=== PATIENT | female | born 1960 | race African-American/Black ===

== ENCOUNTER → 2018-09-24 | Outpatient (CLI) | payer OTHER ==
[2015-09-16 13:50] VITALS: BP 141/73
[~2018-09-24] MED LIST: AMLO10TA6 PO; CLON0.2T PO; LISI-334 PO; MELO15TA23 PO
--- NOTE | 2018-09-24 12:22 | KCIC ---
EXAMINATION: Magnetic resonance imaging (MRI) of the lumbar spine without contrast 09/24/2018 11:00 AM HISTORY: Low back pain. TECHNIQUE: Multiplanar multi-weighted MRI of the lumbar spine was performed without intravenous contrast using the standard lumbar spine protocol. Contrast information: None administered. COMPARISON: None available. FINDINGS: The alignment of the lumbar spine is normal. Vertebral bodies demonstrate normal signal intensity on all sequences. There are no compression fractures. The conus medullaris terminates at the level of L1. The distal spinal cord signal intensity is normal. Visualized portions of the sacrum appear intact There is disc desiccation at L2-L3, L3-L4 and L4-L5 with associated annular fissures. Mild disc height loss is noted at these levels. There is congenital narrowing of the spinal canal secondary to shortened pedicles. The aorta is normal. There is nonspecific soft tissue nodule identified in the left retroperitoneum measuring 6 mm (series 7, image 19). L2-L3: There is a [id number] circumferential disc bulge. There is moderate facet arthropathy with ligamentum flavum infolding. There is moderate bilateral neuroforaminal stenosis. There is moderate spinal canal stenosis with narrowing of the lateral recess bilaterally, left greater than right. L3-L4: There is a moderate circumferential disc bulge with right far lateral disc protrusion and central disc extrusion. There is moderate to severe facet arthropathy with ligamentum flavum infolding. There is moderate to severe spinal canal stenosis. There is narrowing of the lateral recess bilaterally. L4-L5: There is a moderate circumferential disc bulge with central disc protrusion. There is moderate to severe facet arthropathy with ligamentum flavum infolding. There is mild neuroforaminal stenosis. There is right lateral recess stenosis secondary to ligamentum flavum infolding and disc bulge. Mild spinal canal stenosis. L5-S1: There is mild disc bulge. There is moderate facet arthropathy with ligamentum flavum infolding. There is mild bilateral neuroforaminal stenosis. No spinal canal stenosis. IMPRESSION: Moderate degenerative changes of the lumbar spine as described in detail above. Electronically signed by: Kallie Mcgarry MD (09/24/2018 12:18 PM) [id number]
== END | disposition home or self-care (01) ==
LOC: KCIC MRI 11:01
PROVIDERS: ATTEND Internal Medicine
DX: M47.816 Spondylosis without myelopathy or radiculopathy, lumbar region (principal); M48.061 Spinal stenosis, lumbar region without neurogenic claudication; M51.26 Other intervertebral disc displacement, lumbar region
CPT/HCPCS: 72148

== ENCOUNTER → 2018-10-17 | Outpatient (CLI) | payer OTHER ==
[2015-09-16 13:50] VITALS: BP 141/73
[~2018-10-17] MED LIST changes: +CHLO25TA10 PO; +SPIR50TA4 PO
--- NOTE | 2018-10-17 13:33 | PAIN ---
DATE OF SERVICE: 10/17/2018 INITIAL CONSULTATION FOR PAIN CLINIC CHIEF COMPLAINT: Low back and right greater than left lower extremity pain. HISTORY OF PRESENT ILLNESS: This is a 58-year-old female who presents with history of pain for about a year, but increasing over the past month in the low back into the right lower extremity, mostly in the anterior thigh, anterior lateral thigh, medial thigh, medial lower leg, across the low back and into the right posterior hip as well and the gluteus. The patient reports it is sharp, throbbing, intermittent in intensity, changes with activity, radiating, shooting, aching in the low back as well. The patient reports it wakes her from sleep frequently, but not every night. The patient reports it does not affect her bowel or bladder control, but does affect her ability to walk. She uses a cane or walker and has a cane with her today. She is walking with her left hand. The patient has tried tramadol in the past, which does help, but only mildly. She has not had any other formal physical therapies or chiropractic treatments or other modalities by her report. The patient reports it gets worse with standing, walking, changing positions, better with sitting or lying down again, but still waking her from sleep at times. The patient's disability rate from 0-10, 10 being the worst, is an 8 with family and home responsibilities, social activity, self-care, 9 with occupation, 6 with recreational activity and a 7 with life support activities. The patient did have MRI scan of the lumbar spine that is dated 09/24/2018 showing moderate degenerative change of lumbar spine, L3-L4 with moderate circumferential disk bulge with right far lateral disk protrusion and central disk extrusion at L4-L5 shows bulging disk with central disk protrusion as well with moderate to severe facet arthropathy and ligamentum flavum enfolding and right lateral recess stenosis secondary to ligamentum flavum enfolding and disk bulge. L5-S1 shows moderate facet arthropathy with mild disk bulge and mild bilateral neural foraminal stenosis. The patient reports no loss of motor function with significant fatigability, especially the right leg with walking more than about 10 minutes or so. She can sit and rest and this does get improved after about 5-10 minutes. PAST MEDICAL HISTORY: Significant for hypertension, arthritis, obesity. PREVIOUS SURGERY: Include hysterectomy in 2017. CURRENT MEDICATIONS: Include clonidine, amlodipine, spironolactone and chlorthalidone. ALLERGIES: The patient has no known drug allergies. FAMILY HISTORY: Significant for hypertension, diabetes, cancers, heart stroke and kidney failure. SOCIAL HISTORY: The patient drinks alcohol only very rarely, does not smoke, does not use any illegal, illicit or recreational drugs. He is single. Lives locally in [place], [place]. REVIEW OF SYSTEMS: The patient's review of systems is positive for those items mentioned in history of present illness. All systems reviewed and otherwise negative. It is complete, full and well documented on the patient's chart. PHYSICAL EXAMINATION: VITAL SIGNS: Today, the patient's blood pressure is 138/85, pulse is 93, respirations 18, temperature is 98.2 degrees Fahrenheit. Height is 64 inches, weight is 305 pounds. GENERAL: The patient is awake, alert, oriented, appropriate, very pleasant demeanor. HEENT: Head is normocephalic, atraumatic. Extraocular movements intact and symmetrical. Oral cavity: Mucous membranes moist and pink. Dentition is intact. NECK: Shows anterior throat supple without palpable lymphadenopathy noted. Swallow reflex symmetrical. CHEST: Shows normal with inspection. Breath sounds clear to auscultation bilaterally. HEART: Shows S1, S2 clear. No murmurs auscultated. ABDOMEN: Obese, soft, nontender, nondistended. No palpable organomegaly is noted. No rebound or guarding demonstrated. BACK: Shows spine grossly in the midline. Slight exaggeration of thoracic kyphosis, some minor flattening of lumbar lordotic curvature. Lumbar paraspinous muscle shows symmetrical on inspection, with palpation shows some moderate tenderness throughout the upper, middle, lower distribution of paraspinous muscles, but only diffusely without radiation. The patient has good rotational motion both laterally as well as extension and flexion without significant difficulty. EXTREMITIES: Lower extremities show deep tendon reflexes at 1+ in the patellar and tendo calcaneus tendons are equal. Motor exam is approximately 4 on a scale of 5 and equal with dorsiflexion, extension, quadriceps and hamstring flexion bilaterally. Peripheral pulses are 1+ posterior tibial. No peripheral edema is noted. Lower extremities are warm and dry to touch, equal in color and appearance. Straight leg raise noted to be negative for reproduction of radicular symptoms bilaterally. Gaenslen's and Galindo's maneuvers are negative bilaterally as well. The patient is able to stand, stand on her toes without significant difficulty, walks with slight shuffling gait, is not using assistive devices to ambulate. SKIN: Shows warm and dry, good turgor. No edema. No sores or bruising. IMPRESSION: 1. This is a 58-year-old female with 1-year history of low back and right greater than left lower extremity pain, worse over the past month. 2. MRI scan of the lumbar spine as noted. 3. Arthritis. 4. Hypertension. 5. Obesity. PLAN: Options were discussed with the patient including conservative medical management, physical therapy, interventional techniques. She would like to pursue most conservative course. We will order physical therapy with lumbar traction as well as strengthening and stretching exercises and core strengthening. If not significantly improved after physical therapy, we did discuss lumbar epidural steroid injection and she would like to try therapy first. We will make these arrangements and the patient to follow up once therapy is completed. KEYANNA SEVILLA MD DR: TOMER/nts JOB#: [id number] / [id number] CARMEN Guerrero MD
== END | disposition home or self-care (01) ==
LOC: PNCL 09:44
PROVIDERS: ATTEND Anesthesiology
DX: M54.5 Low back pain (principal); M79.662 Pain in left lower leg; I10 Essential (primary) hypertension; M19.90 Unspecified osteoarthritis, unspecified site; E66.9 Obesity, unspecified; Z82.49 Family history of ischemic heart disease and other diseases of the circulatory system; Z83.3 Family history of diabetes mellitus; Z84.1 Family history of disorders of kidney and ureter
CPT/HCPCS: G0463

== ENCOUNTER → 2021-08-18 | Outpatient (CLI) | payer OTHER ==
[2015-09-16 13:50] VITALS: BP 141/73
[~2021-08-18] MED LIST changes: +AMLO-187 PO; -AMLO10TA6 PO; -LISI-334 PO; +LISI20TA18 PO
--- NOTE | 2021-08-18 18:33 | RAD ---
MR#: [id number] Date of Study: 08/18/2021 Ordering Physician: VIOLET MARTIN, Referring Physician: VIOLET MARTIN, Tech: Eliu Das MBA, RDMS, RVT, RDCS, RTR APPROVED REPORT Patient Location : OUT-PATIENT Indications VENOUS INSUFFICIENCY Findings Limited grayscale images of the bilateral saphenofemoral junctions are grossly unremarkable. The right great saphenous vein measures 6.6 mm, the left great saphenous vein measures 5.2 mm. The bilateral greater saphenous veins do not reveal any evidence of reflux. The bilateral lesser saphenous veins do not reveal any evidence of reflux. Critical Notification Critical Value: No <Conclusion> 1. Negative for reflux in the bilateral greater and lesser saphenous veins. Signed by : Violet Martin, Electronically Approved : 08/18/2021 18:33:42
== END ==
LOC: US 12:36
PROVIDERS: ATTEND Internal Medicine Cardiovascular Disease
DX: I87.2 Venous insufficiency (chronic) (peripheral) (principal)
CPT/HCPCS: 93970